=== PATIENT | female | born 1970 | race Caucasian/White ===

== ENCOUNTER 2017-06-06 18:03 | Emergency (ER) | payer MEDICAID, OTHER ==
[~2017-06-06] VITALS: Ht 160 cm; Wt 73.0 kg
[~2017-06-06 18:03] MED LIST: CEFD300C3 PO
[2017-06-06 18:32] VITALS: BP 149/85
--- NOTE | 2017-06-06 19:10 | NUR ---
PT PRESENTS TO ER W/C/O RASH TO FACE/NECK X7 DAYS.PT DENIES ANY MEDICAL HX. DENIES SOB;NO ACCESSORY MUSCLES USED; DENIES N/V/D; SKIN IS PINK/WARM/DRY; AAOX4 WITH EVEN AND STEADY GAIT; LUNGS CLEAR BL; HR EVEN AND REGULAR; PT DENIES ANY FEVER, CP,OR COUGH AT THIS TIME; PATIENT STATES PAIN OF 0/10 AT THIS TIME; PATIENT POSITIONED FOR COMFORT;[employer] OPERATOR EVALUATING PT.
[2017-06-06 19:23] VITALS: BP 134/76
== END 2017-06-06 19:22 | disposition home or self-care (01) ==
LOC: MED 18:03
DX: R21 Rash and other nonspecific skin eruption (principal)
CPT/HCPCS: 99283

== ENCOUNTER 2018-02-06 08:32 | Emergency (ER) | payer MEDICAID ==
[~2018-02-06] VITALS: Ht 165.1 cm; Wt 71.7 kg
[2018-02-06 08:37] VITALS: BP 139/90
--- NOTE | 2018-02-06 08:41 | NUR ---
Patient ambulated to bed 4.
--- NOTE | 2018-02-06 08:45 | NUR ---
47f bib self with c/o prutitis rash to bl arms and feet x 4 days, progressively getting worse. Patients denies any contact with new material or food. Patient denies any SOB. No swelling noted to face, lips, or mouth. Clear speech. Pt is aox4 with steady gait. RR are even and unlabored. ER md aware of patient status. Patient to changed into gown. Will continue to monitor.
[2018-02-06] MEDS ORDERED: FAMOTIDINE 20 MG TAB PO ONE (09:15)
[2018-02-06 09:53] LABS: BASOPHILS # (AUTO) 0.1 K/uL (0.00-0.22); BASOPHILS % (AUTO) 1.2 % (0.0-2.0); EOSINOPHILS # (AUTO) 0.1 K/uL (0-0.4); EOSINOPHILS % (AUTO) 1.1 % (0.0-4.0); HEMATOCRIT 39.8 % (36-48); HEMOGLOBIN 13.7 g/dL (12.0-16.0); LYMPHOCYTES # (AUTO) 2.7 K/uL (2.5-16.5); LYMPHOCYTES % (AUTO) 28.9 % (20.5-51.1); MEAN CORPUSCULAR HEMOGLOBIN 30 pg (27-31); MEAN CORPUSCULAR HGB CONC 35 g/dL (33-37); MONOCYTES % (AUTO) 10.2 % (1.7-9.3); NEUTROPHILS # (AUTO) 5.5 K/uL (1.8-7.7); NEUTROPHILS % (AUTO) 58.6 % (42.2-75.2); PLATELET COUNT (AUTO) 242 K/uL (140-450); RED BLOOD CELL COUNT(AUTO) 4.52 MIL/uL (4.20-5.40); RED CELL DISTRIBUTION WIDTH 12.8 % (11.6-13.7); WHITE BLOOD COUNT (AUTO) 9.3 K/uL (4.8-10.8)
[2018-02-06 10:10] LABS: ALBUMIN 3.3 g/dL (3.4-5.0); ANION GAP 11.9 (8-16); CARBON DIOXIDE 28.6 mmol/L (21-32); CREATININE 0.6 mg/dL (0.6-1.3); POTASSIUM 4.5 mmol/L (3.5-5.1); TOTAL BILIRUBIN 0.3 mg/dL (0.0-1.0)
[2018-02-06 10:17] LABS: APPEARANCE,URINE CLEAR (CLEAR); BILIRUBIN,URINE NEGATIVE (NEGATIVE); BLOOD, URINE NEGATIVE (NEGATIVE); COLOR,URINE YELLOW (YELLOW); LEUKOCYTE ESTERASE ,URINE NEGATIVE (NEGATIVE); NITRITE, URINE NEGATIVE (NEGATIVE); PH,URINE 5.5 (5.0-9.0); UGLUCOSE 3+ (NEGATIVE)
[2018-02-06 10:23] LABS: RBC,URINE 0-5 (RARE) /HPF (0-5); WBC,URINE 0-5 (RARE) /HPF (0-5)
[2018-02-06] MEDS ORDERED: NACL 0.9% 2,000 ML IV ONE (10:25)
--- NOTE | 2018-02-06 10:45 | NUR ---
patient to and from restroom with steady gait. returned to rm 4 without incident. patient provided with warm blanket.
--- NOTE | 2018-02-06 12:45 | NUR ---
iv fluids running without difficultly. all needs met at this time. will continue to monitor.
--- NOTE | 2018-02-06 13:43 | NUR ---
Patient discharged with v/s stable. Written and verbal after care instructions given and explained. Patient alert, oriented and verbalized understanding of instructions. Ambulatory with steady gait. All questions addressed prior to discharge. ID band removed. Patient advised to follow up with PMD. Rx of metformin, lamisil, pepcid, hydrocortisone 1% given. Patient educated on indication of medication including possible reaction and side effects. Opportunity to ask questions provided and answered.
[2018-02-06 13:44] VITALS: BP 147/90
== END 2018-02-06 13:43 | disposition home or self-care (01) ==
LOC: MED 08:32
DX: T78.40XA Allergy, unspecified, initial encounter (principal); B35.3 Tinea pedis; E11.9 Type 2 diabetes mellitus without complications; X58.XXXA Exposure to other specified factors, initial encounter
CPT/HCPCS: 36415; 80053; 81001; 81025; 83690; 85025; 99284